=== PATIENT | female | born 2000 | race Asian ===

== ENCOUNTER 2021-05-08 11:30 | Emergency (ER) | payer BC ==
[~2021-05-08] VITALS: Ht 162.6 cm; Wt 47.6 kg
--- NOTE | 2021-05-08 11:42 | NUR ---
URINE SPECIMEN COLLECTED AND SENT TO LAB.
[2021-05-08] MEDS ORDERED: ACETAMINOPHEN 325 MG TABLET ONE (12:22)
[2021-05-08] MEDS ORDERED: ACETAMINOPHEN 325 MG TABLET PO ONE (12:30)
[2021-05-08] MEDS ORDERED: IV NS 0.9% 1,000 ML IV ONE (12:30)
[2021-05-08 13:00] LABS: BASOPHILS % (AUTO) 0.8 % (0.0-2.0); HEMATOCRIT 36 % (33-45); HEMOGLOBIN 11.5 g/dL (11.5-14.8); LYMPHOCYTES # (AUTO) 1.2 K/uL (0.8-4.8); LYMPHOCYTES % (AUTO) 22.9 % (20.0-44.0); MEAN CORPUSCULAR HGB CONC 32 g/dl (31.0-36.0); MEAN CORPUSCULAR VOLUME 63 fL (82-100); MONOCYTES # (AUTO) 0.6 K/uL (0.1-1.30); MONOCYTES % (AUTO) 11.1 % (2.0-12.0); NEUTROPHILS # (AUTO) 3.3 K/uL (1.8-8.9); NEUTROPHILS % (AUTO) 64.2 % (43.0-81.0); PLATELET COUNT (AUTO) 345 K/uL (150-450); RED BLOOD CELL COUNT(AUTO) 5.79 MIL/uL (4.0-5.2); WHITE BLOOD COUNT (AUTO) 5.1 K/uL (4.3-11.0)
[2021-05-08 13:04] LABS: BILIRUBIN,URINE NEGATIVE (NEGATIVE); COLOR,URINE YELLOW (YELLOW); LEUKOCYTE ESTERASE ,URINE SMALL (NEGATIVE); NITRITE, URINE NEGATIVE (NEGATIVE); PH,URINE 6.5 (5.0-8.0); PROTEIN,URINE NEGATIVE (NEGATIVE); UGLUCOSE NEGATIVE (NEGATIVE); UROBILINOGEN,URINE 0.2 EU/dL (0.2)
[2021-05-08 13:24] LABS: ALBUMIN 4.1 g/dL (3.4-5.0); BILIRUBIN,DIRECT 0.1 mg/dL (0.0-0.2); BILIRUBIN,TOTAL 0.5 mg/dL (0.2-1.0); CALCIUM, SERUM 9.2 mg/dL (8.5-10.1); CREATININE 0.7 mg/dL (0.6-1.3); POTASSIUM 3.6 mmol/L (3.5-5.1); TOTAL PROTEIN, SERUM 8.2 g/dL (6.4-8.2)
[2021-05-08 13:26] LABS: BACTERIA,URINE Few /HPF (None Seen); RBC,URINE NONE SEEN /HPF (0-2); SQUAMOUS EPITHELIAL CELL,UR Moderate /HPF (None Seen)
[2021-05-08] MEDS ORDERED: CEFD300C3 PO (14:16)
[2021-05-08] MEDS ORDERED: ACET-2605 PO (14:16)
[2021-05-08] MEDS ORDERED: CEFTRIAXONE 1GM BAG (ER ONLY) 1 GM/50 ML PIGGYBACK IV ONE (14:30)
--- NOTE | 2021-05-08 14:40 | NUR ---
IV removed. Catheter intact and site benign. Pressure and 4x4 applied to site. No bleeding noted.Patient discharged to home in stable condition. Written and verbal after care instructions given. Patient verbalizes understanding of instruction.
[2021-05-08 14:41] VITALS: BP 127/80
--- NOTE | 2021-05-16 11:30 | NUR ---
ADENDUM. PT RECEIVED NORMAL SALINE ON 05/08/2021 STARTED AT 1222 AND ENDED AT 1322 ON L AC 20G. PT TOLERATED WELL.
== END 2021-05-08 14:41 | disposition home or self-care (01) ==
LOC: ER 11:30
DX: N10 Acute pyelonephritis (principal); R10.32 Left lower quadrant pain; R10.31 Right lower quadrant pain; Z79.1 Long term (current) use of non-steroidal anti-inflammatories (NSAID); Z79.899 Other long term (current) drug therapy
CPT/HCPCS: 36415; 80048; 80076; 81001; 84703; 85025; 87086; 96360; 99283; J7030